=== PATIENT | female | born 1965 | race Caucasian/White ===

== ENCOUNTER 2020-05-08 12:19 | Emergency (ER) | payer OTHER ==
[~2020-05-08] VITALS: Ht 165.1 cm; Wt 56.7 kg
[2020-05-08 12:19] VITALS: BP_SYST 110
[2020-05-08] MEDS ORDERED: METOCLOPRAMIDE HCL 10 MG/2 ML VIAL IVP ONE (12:45)
[2020-05-08] MEDS ORDERED: MECLIZINE HCL 25 MG TABLET (ANITVERT) PO ONE (12:45)
[2020-05-08 12:50] LABS: BASOPHILS # (AUTO) 0.1 K/uL (0.0-0.2); BASOPHILS % (AUTO) 0.6 % (0.0-2.0); HEMATOCRIT 37.1 % (36-48); HEMOGLOBIN 12.4 g/dL (12.0-16.0); LYMPHOCYTES # (AUTO) 1.1 K/uL (1.0-5.5); MEAN CORPUSCULAR HEMOGLOBIN 29 pg (27-31); MEAN CORPUSCULAR HGB CONC 34 % (32-36); MEAN CORPUSCULAR VOLUME 88 fL (79.0-98.0); MONOCYTES # (AUTO) 0.3 K/uL (0.0-1.0); MONOCYTES % (AUTO) 3.1 % (1.7-9.3); NEUTROPHILS # (AUTO) 6.8 K/uL (1.8-7.7); NEUTROPHILS % (AUTO) 83.3 % (40.0-70.0); PLATELET COUNT (AUTO) 232 K/uL (130-430); RED BLOOD CELL COUNT(AUTO) 4.24 MIL/uL (4.2-6.2); RED CELL DISTRIBUTION WIDTH 12.4 % (9.0-15.0); WHITE BLOOD COUNT (AUTO) 8.2 K/uL (4.8-10.8)
[2020-05-08 13:57] LABS: CALCIUM 9.8 mg/dL (8.4-11.0); CREATININE 0.62 mg/dL (0.55-1.30); POTASSIUM 3.6 mmol/L (3.5-5.1)
[2020-05-08 14:10] LABS: TOTAL BILIRUBIN 0.3 mg/dL (0.0-1.0)
[2020-05-08 14:11] LABS: ALBUMIN 4.1 g/dL (3.4-4.8)
[2020-05-08 14:18] LABS: PROTHROMBIN TIME 10.7 SECS (9.5-12.5)
[2020-05-08] MEDS ORDERED: MECL-109 PO (14:19)
[2020-05-08 14:30] VITALS: BP_SYST 139
== END 2020-05-08 14:30 | disposition home or self-care (01) ==
LOC: SED 12:19
DX: H81.399 Other peripheral vertigo, unspecified ear (principal); Z79.899 Other long term (current) drug therapy
CPT/HCPCS: 36415; 70450; 71045; 76376; 80053; 81025; 84484; 85025; 85610; 85730; 93005; 96374; 99285; J2765; J8597

== ENCOUNTER 2024-01-29 10:07 | Emergency (ER) | payer OTHER ==
[~2024-01-29] VITALS: Ht 165.1 cm; Wt 56.2 kg
[~2024-01-29 10:07] MED LIST: MECL-109 PO
[2024-01-29 10:33] VITALS: BP_SYST 124; PULSE 74; RESP 16; TEMP 97.2; O2SAT 100
[2024-01-29 10:34] VITALS: BP_SYST 124; PULSE 70; RESP 18; TEMP 97.8; O2SAT 98
[2024-01-29] MEDS: ACETAMINOPHEN 500 MG TABLET PO ONE (11:17)
== END 2024-01-29 11:38 | disposition home or self-care (01) ==
LOC: SED 10:07
DX: S20.219A Contusion of unspecified front wall of thorax, initial encounter (principal); S16.1XXA Strain of muscle, fascia and tendon at neck level, initial encounter; Z79.899 Other long term (current) drug therapy; V43.52XA Car driver injured in collision with other type car in traffic accident, initial encounter; Y93.89 Activity, other specified; Y92.89 Other specified places as the place of occurrence of the external cause; Y99.8 Other external cause status
CPT/HCPCS: 71045; 93005; 99283